=== PATIENT | male | born 1970 | race Caucasian/White ===

== ENCOUNTER 2019-04-30 17:41 | Observation (INO) | payer OTHER ==
[2019-04-30 17:54] VITALS: BMI 35.0
--- NOTE | 2019-04-30 20:25 | PDOC ---
Attending Attestation - Resident Resident Name: Channing Poon - ED Attending Attestation I have performed the following: I have examined & evaluated the patient, The case was reviewed & discussed with the resident, I agree w/resident's findings & plan, Exceptions are as noted - HPI HPI: 04/30/19 20:38 This 48-year-old male has a history of [id number] diabetes, coronary artery disease status post stent and hypertension He was referred to the ER today to be hospitalized for chest pain by Dr. Fleming - Physicial Exam PE: 04/30/19 20:42 48 yo male p/w chest pain head ncat neck supple lungs cta b/l cvs [id number] abd nontender skin warm and dry - Medical Decision Making 04/30/19 20:40 pt used to smoke 2 packs /day tobacco but quit 10 years ago plan trop,cbc.comp.cxr and admit to tele OBS
--- NOTE | 2019-04-30 20:38 | PDOC ---
History of Present Illness - General Chief Complaint: Chest Pain Stated Complaint: SENT BY PCP/CHEST PAIN Time Seen by Provider: 04/30/19 20:24 History Source: Patient - History of Present Illness Initial Comments: 04/30/19 20:35 48 yo M PMH HTN, HLD, CAD s/p stent 2/ 95% stenosis of LAD, anxiety/depression , presenting with chest pain. Reports that he has had intermittent pressure pain for the past 6 months, not exacerbated or alleviated by activity level, not associated with N/V or diaphoresis, lasting 5-30 minutes at a time. Not currently feeling this pain. Patient went to see his PCP, who sent him to the emergency room. Patient denies SOB, N/V, constipation/diarrhea, fevers/chills, LIZ. Past History - Past Medical History Allergies/Adverse Reactions: Allergies Allergy/AdvReac Type Severity Reaction Status Date / Time Penicillins Allergy Verified 09/15/14 11:32 Home Medications: Ambulatory Orders Aspirin Coated [Ecotrin -] 81 mg PO DAILY 12/07/13 Cholecalciferol (Vitamin D3) [Vitamin D] 1,000 unit PO DAILY 12/07/13 Cyanocobalamin [Vitamin B12 -] 100 mcg PO DAILY 12/07/13 Meloxicam [Mobic -] 15 mg PO DAILY 12/07/13 Rosuvastatin Calcium [Crestor] 20 mg PO DAILY 12/07/13 metFORMIN HCL [Glucophage -] 500 mg PO DAILY 12/07/13 Cardiac Disorders: Yes (CAD) COPD: No Diabetes: Yes Hypercholesterolemia: Yes - Surgical History Abdominal Surgery: Yes (UMBILICAL HERNIA) Cardiac Surgery: Yes (CARDIAC STENTS) - Psycho Social/Smoking Cessation Hx Smoking History: Never smoked Have you smoked in the past 12 months: No Number of Cigarettes Smoked Daily: 0 Information on smoking cessation initiated: No Hx Alcohol Use: No Drug/Substance Use Hx: No Review of Systems - Review of Systems Able to Perform ROS?: Yes Constitutional: No: Chills, Fever HEENTM: No: Recent change in vision, Throat Pain, Difficulty Swallowing Respiratory: No: Cough, Orthopnea, Shortness of Breath Cardiac (ROS): Yes: Chest Pain (intermittent, pressure, 5-30 minutes at time, unchanged by activity). No: Edema, Irregular Heart Rate, Lightheadedness, Syncope ABD/GI: No: Constipated, Diarrhea, Nausea, Vomiting : No: Dysuria, Frequency Musculoskeletal: No: Back Pain, Muscle Pain Neurological: No: Headache, Numbness, Tingling *Physical Exam - Vital Signs Last Vital Signs Temp Pulse Resp BP Pulse Ox 98.1 F 76 16 134/83 98 04/30/19 17:49 04/30/19 17:49 04/30/19 17:49 04/30/19 17:49 04/30/19 17:49 - Physical Exam Comments: 04/30/19 21:37 Gen: well-developed, well-nourished, NAD Neuro: AAOX4, CN II-XII intact, FTN intact HEENT: atraumatic, normocephalic Neck: trachea midline, supple CV: regular rhythm, regular rate Pulm: CTA b/l, no wheezing Abd: soft, non-distended, non-tender MSK: full ROM, intact pulses Extr: no edema, no deformities Skin: warm, dry ED Treatment Course - LABORATORY CBC & Chemistry Diagram: 04/30/19 21:15 04/30/19 21:15 - RADIOLOGY Radiology Studies Ordered: Category Date Time Status CHEST PA & LAT [RAD] Stat Radiology 04/30/19 20:33 Ordered Medical Decision Making - Medical Decision Making 04/30/19 21:30 EKG here normal sinus rhythm at 76 bpm. At office, showed rSr' in V1, possibly normal variant. Considering patient history and presentation, will likely admit for tele obs. - CBC, CMP - trop, EKG - DX PA + L - admit 04/30/19 21:46 CXR does not show nay acute pathology. Discharge - Discharge Information Problems reviewed: Yes Clinical Impression/Diagnosis: Chest pain Condition: Stable - Admission Yes - Follow up/Referral Referrals: Eliana Fleming [Primary Care Provider] - - Patient Discharge Instructions - Post Discharge Activity
[2019-04-30 21:33] LABS: BASO % 1.1 % (0-2.0); EOS % 2.2 % (0-4.5); HEMATOCRIT 45.2 % (35.4-49); HEMOGLOBIN 15.6 GM/dL (11.7-16.9); LYMPH % 34.5 % (8-40); MCH 30.7 pg (25.7-33.7); MCHC 34.5 g/dl (32.0-35.9); MEAN CELL VOLUME 89.2 fl (80-96); MONO % 7.8 % (3.8-10.2); NEUT % 54.4 % (42.8-82.8); PLATELET COUNT 195 K/MM3 (134-434); RBC 5.07 M/mm3 (4.00-5.60); RDW 13.3 % (11.9-15.9)
[2019-04-30 22:00] LABS: ALBUMIN 3.8 g/dl (3.4-5.0); BILIRUBIN,TOTAL 0.7 mg/dL (0.2-1); BLOOD UREA NITROGEN 9.9 mg/dL (7-18); CALCIUM 8.8 mg/dL (8.5-10.1); CREATININE 0.9 mg/dL (0.55-1.3); POTASSIUM 4.6 mmol/L (3.5-5.1); TOT PROT 6.5 g/dl (6.4-8.2)
--- NOTE | 2019-04-30 22:08 | PN ---
Teaching Attending Note Name of Resident: Jewel Gaspar ATTENDING PHYSICIAN STATEMENT I saw and evaluated the patient. I reviewed the resident's note and discussed the case with the resident. I agree with the resident's findings and plan as documented. SUBJECTIVE: 48 yo man w/ PMH HTN, HLD, uncontrolled DM, CAD s/p stent -2009, s/p ablation 2015, presenting with chest pain. Reports that he has had intermittent pressure pain for the past 6 months, not exacerbated or alleviated by activity level lasts up to 30 min at a time. He denied significant. He lost his health insurance in september and had not seen a roller inspector since then. Has been off his medications due to insurance loss. OBJECTIVE: Last Vital Signs Temp Pulse Resp BP Pulse Ox 98.1 F 76 16 134/83 98 04/30/19 17:49 04/30/19 17:49 04/30/19 17:49 04/30/19 17:49 04/30/19 17:49 gen- nad, obese heent- atraumatic, nc neck -no jvd cv-s1+s2+rrr chest cta b/l abdomen -soft, nt ext -no pedal edema Abnormal Lab Results 04/30/19 21:15 Sodium 135 L Anion Gap 7 L Random Glucose 368 H cxr reviewed ekg reviewed ASSESSMENT AND PLAN: #atypical chest pain r/o acs especially given his Hx of CAD, uncontrolled DM -tele-obs -trend trops -asa daily -statin -echo -b-una -acei -cardiology evaluation -stress test vs angiography #Uncontrolled DM, severe hyperglycemia -iv fluid hydration -a1c -novolog sliding scale -urine MA -#DVT ppx
--- NOTE | 2019-04-30 23:01 | HP ---
CHIEF COMPLAINT: PCP: Dr. Fleming (previously Dr. Vicente at [facility]) HISTORY OF PRESENT ILLNESS: 48 y/o/m with PMHx of HTN, CAD s/p stents, anxiety, depression here for chest pain x6 months. He has had intermittent chest pain for the last 6 months that occurs daily. The chest pain is sometimes sharp and sometimes heavy and lasts 5- 30 minutes and self resolves. His chest pain in the last 6 months has not been severe enough to seek medical care. He has no associated palpitations, sweating , dizziness, or SOB. Today he saw Dr. Fleming for the first time. He had an EKG done at the office and was sent to the ER. He had a stress test done 2 years ago which was normal. He admits to having multiple episodes of diarrhea daily for a long time and has discussed this with his previous PCP, today when he mentioned it to Dr. Fleming she recommended follow up with GI. He denies any bloody or foul smelling stools. He denies any numbness, tingling, N/V/D, or abd pain. ER course was notable for: (1) normal sinus rhythm EKG without any acute ischemic changes Recent Travel: none PAST MEDICAL HISTORY: HTN, CAD s/p stents, anxiety, depression PAST SURGICAL HISTORY: cardiac cath with stents, ablation for SVT, umbilical hernia repair Social History: Smoking: denies Alcohol: social EtOH Drugs: denies Allergies Penicillins Allergy (Verified 09/15/14 11:32) HOME MEDICATIONS: Home Medications Medication Instructions Recorded Aspirin Coated [Ecotrin -] 81 mg PO DAILY 12/07/13 Cholecalciferol (Vitamin D3) 1,000 unit PO DAILY 12/07/13 [Vitamin D] Cyanocobalamin [Vitamin B12 -] 100 mcg PO DAILY 12/07/13 Meloxicam [Mobic -] 15 mg PO DAILY 12/07/13 Rosuvastatin Calcium [Crestor] 20 mg PO DAILY 12/07/13 metFORMIN HCL [Glucophage -] 500 mg PO DAILY 12/07/13 REVIEW OF SYSTEMS Constitutional: denies weakness, fever, loss of appetite, sweating HEENT: denies sore throat, vision changes, nasal congestion Cardio: chest pain. denies palpitations, lightheadedness Resp: denies SOB, wheezing GI: diarrhea. denies abd pain, nausea, vomiting, constipation, bloody stools MSK: denies joint pain, back pain, neck pain SKIN: denies rashes Neuro: denies loss of consciousness, numbness, tingling, headache PHYSICAL EXAMINATION Vital Signs - 24 hr 04/30/19 17:49 Temperature 98.1 F Pulse Rate 76 Respiratory 16 Rate Blood Pressure 134/83 O2 Sat by Pulse 98 Oximetry (%) GENERAL: Awake, alert, and fully oriented, in no acute distress. HEAD: NC/AT EYES: PERRL, EOMI, no scleral icterus EARS, NOSE, THROAT: Ears normal, nares patent, oropharynx clear without exudates. Moist mucous membranes. NECK: Normal range of motion, supple without lymphadenopathy, JVD, or masses. LUNGS: Breath sounds equal, clear to auscultation bilaterally. No wheezes, and no crackles. No accessory muscle use. HEART: Regular rate and rhythm, normal S1 and S2 without murmur, rub or gallop. ABDOMEN: Soft, nontender, not distended, normoactive bowel sounds, no guarding, no rebound, no masses. MUSCULOSKELETAL: grossly normal range of motion at all joints UPPER EXTREMITIES: 2+ pulses, warm, well-perfused. No cyanosis. No clubbing. No peripheral edema. LOWER EXTREMITIES: 2+ pulses, warm, well-perfused. No peripheral edema. NEUROLOGICAL: Normal speech. 5/5 strength upper and lower extremities PSYCHIATRIC: Cooperative. Good eye contact. Appropriate mood and affect. SKIN: Warm, dry, normal turgor, no rashes or lesions noted, normal capillary refill. Laboratory Results - last 24 hr 04/30/19 04/30/19 04/30/19 21:15 21:15 21:15 WBC 8.0 RBC 5.07 Hgb 15.6 Hct 45.2 MCV 89.2 MCH 30.7 MCHC 34.5 RDW 13.3 Plt Count 195 MPV 9.0 Absolute Neuts (auto) 4.4 Neutrophils % 54.4 Lymphocytes % 34.5 Monocytes % 7.8 Eosinophils % 2.2 Basophils % 1.1 Nucleated RBC % 0 Sodium 135 L Potassium 4.6 Chloride 101 Carbon Dioxide 28 Anion Gap 7 L BUN 9.9 Creatinine 0.9 Est GFR (CKD-EPI)AfAm 116.65 Est GFR (CKD-EPI)NonAf 100.64 Random Glucose 368 H Calcium 8.8 Total Bilirubin 0.7 AST 27 ALT 60 Alkaline Phosphatase 82 Troponin I < 0.02 Total Protein 6.5 Albumin 3.8 Imaging: CXR negative for acute pathology ASSESSMENT/PLAN: 48 y/o/m with PMHx of HTN, CAD s/p stents, anxiety, depression here for chest pain x6 months sent here by Dr. Fleming after EKG in the office. 1)Chest pain - patient with history of CAD s/p 1 stent (LAD) -Trend trops. initial trop negative -continue home ASA -repeat EKG in the morning -Echocardiogram to evaluate cardiac function -continuous cardiac monitoring -Continue home Crestor 2)Hyperglycemia - patient with hx of diabetes at home -BGM Q6hr -Hold home metformin -insulin sliding scale 3)FEN -NPO after midnight incase stress test needed -NS @ 50mls/hr 4)Prophylaxis -SCDs 5)Dispo -Admitted for tele obs Visit type - Emergency Visit Emergency Visit: Yes ED Registration Date: 04/30/19 Care time: The patient presented to the Emergency Department on the above date and was hospitalized for further evaluation of their emergent condition. - New Patient This patient is new to me today: Yes Date on this admission: 05/01/19 - Critical Care Critical Care patient: No ATTENDING PHYSICIAN STATEMENT I saw and evaluated the patient. I reviewed the resident's note and discussed the case with the resident. I agree with the resident's findings and plan as documented. SUBJECTIVE: OBJECTIVE: ASSESSMENT AND PLAN:
[2019-04-30 23:35] VITALS: TEMP 98.2
[2019-04-30] MEDS ORDERED: SODIUM CHLORIDE 1,000 ML IV SCH (23:45)
[2019-05-01 07:45] LABS: HEMATOCRIT 41.6 % (35.4-49); HEMOGLOBIN 14.6 GM/dL (11.7-16.9); MCH 31.2 pg (25.7-33.7); MCHC 35.2 g/dl (32.0-35.9); MEAN CELL VOLUME 88.8 fl (80-96); MEAN PLT VOLUME 8.6 fl (7.5-11.1); PLATELET COUNT 164 K/MM3 (134-434); RBC 4.69 M/mm3 (4.00-5.60); RDW 12.7 % (11.9-15.9); WHITE BLOOD COUNT 6.6 K/mm3 (4.0-10.0)
[2019-05-01 08:08] LABS: ALBUMIN 3.4 g/dl (3.4-5.0); ALK PHOS 75 U/L (45-117); ANION GAP 8 MMOL/L (8-16); BILIRUBIN,TOTAL 0.6 mg/dL (0.2-1); BLOOD UREA NITROGEN 10.3 mg/dL (7-18); CALCIUM 8.5 mg/dL (8.5-10.1); CHLORIDE 104 mmol/L (98-107); CO2 25 mmol/L (21-32); CREATININE 0.8 mg/dL (0.55-1.3); GLUCOSE,RANDOM 303 mg/dL (74-106); POTASSIUM 3.8 mmol/L (3.5-5.1); SGOT/AST 22 U/L (15-37); SGPT/ALT 51 U/L (13-61); SODIUM 136 mmol/L (136-145); TOT PROT 5.9 g/dl (6.4-8.2)
[2019-05-01] MEDS: INSULIN SLIDING SCALE (NOVOLOG) 1 VIAL SQ SCH ×2 (08:55→13:33)
[2019-05-01] MEDS ORDERED: METOPROLOL TARTRATE 50 MG TABLET (FP) PO SCH (10:00)
[2019-05-01] MEDS ORDERED: VENLAFAXINE HCL 150 MG E.R. CAPSULE PO SCH (10:00)
[2019-05-01] MEDS ORDERED: LOSARTAN POTASSIUM 50 MG TABLET (FP) PO SCH (10:00)
[2019-05-01] MEDS ORDERED: ROSUVASTATIN CA 20 MG TABLET (FP) PO SCH ×2 (10:00→22:00)
[2019-05-01] MEDS ORDERED: ESCITALOPRAM OXALATE 20 MG TABLET (FP) PO SCH (10:00)
[2019-05-01] MEDS ORDERED: ASPIRIN 81 MG CHEWABLE TABLETS PO SCH ×2 (10:00→22:00)
--- NOTE | 2019-05-01 10:10 | CON.CARD ---
Consult Consult Specialty:: Cardiology - History of Present Illness History of Present Illness: 48 y/o/m with PMHx of HTN, CAD s/p stents, anxiety, depression here for chest pain x6 months. He has had intermittent chest pain for the last 6 months that occurs daily. The chest pain is sometimes sharp and sometimes heavy and lasts 5- 30 minutes and self resolves. His chest pain in the last 6 months has not been severe enough to seek medical care. He has no associated palpitations, sweating , dizziness, or SOB. Today he saw Dr. Fleming for the first time. He had an EKG done at the office and was sent to the ER. He had a stress test done 2 years ago which was normal. He admits to having multiple episodes of diarrhea daily for a long time and has discussed this with his previous PCP, today when he mentioned it to Dr. Fleming she recommended follow up with GI. He denies any bloody or foul smelling stools. He denies any numbness, tingling, N/V/D, or abd pain. - History Source History Provided By: Patient, Medical Record - Past Medical History Cardio/Vascular: Yes: CAD - Alcohol/Substance Use Hx Alcohol Use: No - Smoking History Smoking history: Never smoked Have you smoked in the past 12 months: No Aproximately how many cigarettes per day: 0 Home Medications - Allergies Allergies/Adverse Reactions: Allergies Allergy/AdvReac Type Severity Reaction Status Date / Time Penicillins Allergy Verified 09/15/14 11:32 - Home Medications Home Medications: Ambulatory Orders Aspirin Coated [Ecotrin -] 81 mg PO DAILY 12/07/13 Cyanocobalamin [Vitamin B12 -] 100 mcg PO DAILY 12/07/13 Rosuvastatin Calcium [Crestor] 40 mg PO DAILY 12/07/13 metFORMIN HCL [Glucophage -] 1,000 mg PO DAILY 12/07/13 Cholecalciferol (Vitamin D3) [Vitamin D3] 5,000 unit PO DAILY 05/01/19 Clonazepam 0.5 mg PO TID 05/01/19 Escitalopram Oxalate [Lexapro -] 20 mg PO DAILY 05/01/19 Ezetimibe 10 mg PO DAILY 05/01/19 Flaxseed Oil [[place]-3 Flaxseed Oil] 1,000 mg PO DAILY 05/01/19 Losartan Potassium 50 mg PO DAILY 05/01/19 Metoprolol Tartrate 50 mg PO DAILY 05/01/19 Venlafaxine HCl ER [Effexor Xr -] 150 mg PO DAILY 05/01/19 Review of Systems - Review of Systems Constitutional: reports: No Symptoms Eyes: reports: No Symptoms HENT: reports: No Symptoms Neck: reports: No Symptoms Cardiovascular: reports: Chest Pain Respiratory: reports: No Symptoms Gastrointestinal: reports: No Symptoms Genitourinary: reports: No Symptoms Breasts: reports: No Symptoms Reported Musculoskeletal: reports: No Symptoms Integumentary: reports: No Symptoms Neurological: reports: No Symptoms Endocrine: reports: No Symptoms Hematology/Lymphatic: reports: No Symptoms Psychiatric: reports: No Symptoms Vital Signs: Vital Signs Temperature 98.2 F 04/30/19 20:35 Pulse Rate 68 05/01/19 08:30 Respiratory Rate 20 05/01/19 08:30 Blood Pressure 101/62 05/01/19 08:30 O2 Sat by Pulse Oximetry (%) 96 05/01/19 09:04 Constitutional: Yes: Well Nourished, No Distress, Calm Eyes: Yes: WNL, Conjunctiva Clear, EOM Intact HENT: Yes: WNL, Atraumatic, Normocephalic Neck: Yes: WNL, Supple, Trachea Midline Respiratory: Yes: WNL, Regular, CTA Bilaterally Gastrointestinal: Yes: WNL, Normal Bowel Sounds Renal/: Yes: WNL Cardiovascular: Yes: WNL, Regular Rate and Rhythm Musculoskeletal: Yes: WNL Extremities: Yes: WNL Integumentary: Yes: WNL Neurological: Yes: WNL, Alert, Oriented ...Motor Strength: WNL Psychiatric: Yes: WNL, Alert, Oriented - Other Data Labs, Other Data: CBC, BMP 05/01/19 05:08 05/01/19 05:08 Troponin, BNP 04/30/19 05/01/19 05/01/19 21:15 03:55 05:08 Troponin I < 0.02 < 0.02 < 0.02 Troponin, BNP 04/30/19 05/01/19 05/01/19 21:15 03:55 05:08 Troponin I < 0.02 < 0.02 < 0.02 Imaging - Results Chest X-ray: Image Reviewed (no i/e) EKG: Image Reviewed (sr wnl) Problem List - Problems (1) Chest pain Code(s): R07.9 - CHEST PAIN, UNSPECIFIED (2) Cat scratch Code(s): T14.8 - OTHER INJURY OF UNSPECIFIED BODY REGION * DO NOT USE *; W55.03XA - SCRATCHED BY CAT, INITIAL ENCOUNTER (3) Dog bite - wound Code(s): W54.0XXA - BITTEN BY DOG, INITIAL ENCOUNTER Assessment/Plan HTN, DM, CAD s/p stents, anxiety, depression here for chest pain x6 months worsening recently. Plan asa bb r/o mi echo MIBI st keep LDL below 70
--- NOTE | 2019-05-01 12:14 | EKG ---
Test Reason : Blood Pressure : / mmHG Vent. Rate : 080 BPM Atrial Rate : 080 BPM P-R Int : 154 ms QRS Dur : 086 ms QT Int : 366 ms P-R-T Axes : 028 018 022 degrees QTc Int : 422 ms NORMAL SINUS RHYTHM NORMAL ECG NO PREVIOUS ECGS AVAILABLE Confirmed by JASPREET WELDON MD ([id number]) on 05/01/2019 12:13:38 PM Referred By: JOCELYN NELSON Confirmed By:JASPREET WELDON MD
--- NOTE | 2019-05-01 12:54 | EKG ---
Test Reason : Blood Pressure : / mmHG Vent. Rate : 076 BPM Atrial Rate : 076 BPM P-R Int : 152 ms QRS Dur : 086 ms QT Int : 374 ms P-R-T Axes : 038 039 042 degrees QTc Int : 420 ms POOR DATA QUALITY, INTERPRETATION MAY BE ADVERSELY AFFECTED NORMAL SINUS RHYTHM NORMAL ECG NO PREVIOUS ECGS AVAILABLE Confirmed by JASPREET WELDON MD ([id number]) on 05/01/2019 12:54:29 PM Referred By: Confirmed By:JASPREET WELDON MD
--- NOTE | 2019-05-01 14:04 | ECHO ---
Name: MELINDA MEDINA Exam:Adult Echocardiogram Study Date: 05/01/2019 09:31 AM Age: 48 yrs Reason For Study: EVALUATE CARDIAC FUNCTION Height: 66 in Weight: 217 lb BSA: 2.1 m2 MMode/2D Measurements & Calculations IVSd: 0.74 cm Ao root diam: 2.7 cm LVIDd: 5.4 cm LA dimension: 3.2 cm LVIDs: 3.6 cm LVPWd: 0.73 cm EDV(Teich): 144.3 ml LVOT diam: 2.2 cm ESV(Teich): 53.7 ml Doppler Measurements & Calculations MV E max edin: 71.6 cm/sec Ao V2 max: 113.8 cm/sec MV A max edin: 59.2 cm/sec Ao max P.2 mmHg MV E/A: 1.2 MV dec time: 0.18 sec MARIANELA(V,D): 3.1 cm2 LV V1 max P.8 mmHg MR max edin: 309.5 cm/sec LV V1 max: 97.2 cm/sec MR max P.3 mmHg TR max edin: 206.9 cm/sec Med Peak E' Edin: 6.0 cm/sec TR max P.1 mmHg Med E/e': 11.9 Lat Peak E' Edin: 9.3 cm/sec Lat E/e': 7.7 Procedure A two-dimensional transthoracic echocardiogram with color flow and Doppler was performed. Left Ventricle The left ventricular size, thickness and function are normal. The left ventricular ejection fraction is normal. The left ventricular wall motion is normal. Right Ventricle The right ventricle is mild to moderately dilated. The right ventricular systolic function is mild to moderately reduced. Atria Normal left and right atrial size and function. Mitral Valve There is mild mitral annular calcification. There is no mitral valve stenosis. There is mild mitral regurgitation. Tricuspid Valve There is trivial tricuspid valve thickening. There is no tricuspid stenosis. There is Trace to mild t ricuspid regurgitation. Right ventricular systolic pressure is normal. Aortic Valve The aortic valve is not well visualized. No hemodynamically significant valvular aortic stenosis. No aortic regurgitation is present. Pulmonic Valve The pulmonic valve is not well visualized. Great Vessels The aortic root is normal size. Pericardium/Pleura There is no pericardial effusion. Interpretation Summary The left ventricular size, thickness and function are normal The left ventricular ejection fraction is normal. The left ventricular wall motion is normal. There is Trace to mild tricuspid regurgitation. Right ventricular systolic pressure is normal. The right ventricle is mild to moderately dilated. The right ventricular systolic function is mild to moderately reduced. There is mild mitral regurgitation. MD Hola Hernandez 05/01/2019 02:03 PM
--- NOTE | 2019-05-01 15:53 | DS ---
Physical Exam: SUBJECTIVE: Patient seen and examined OBJECTIVE: Vital Signs Period Temp Pulse Resp BP Sys/[place] Pulse Ox Last 24 Hr 98.1 F-98.2 F 68-83 16-20 101-134/62-83 96-98 PHYSICAL EXAM GENERAL: The patient is awake, alert, and fully oriented, in no acute distress. HEAD: Normal with no signs of trauma. EYES: extraocular movements intact, sclera anicteric, conjunctiva clear. ENT: Ears normal, nares patent, moist mucous membranes. NECK: Trachea midline, full range of motion, supple. LUNGS: Breath sounds equal, clear to auscultation bilaterally, no wheezes, no crackles, no accessory muscle use. HEART: Regular rate and rhythm, S1, S2 without murmur, rub or gallop. ABDOMEN: Soft, nontender, nondistended, no guarding, no rebound. EXTREMITIES: warm, well-perfused, no edema. NEUROLOGICAL: Normal speech, gait not observed. PSYCH: Normal mood, normal affect. SKIN: Warm, dry, normal turgor, no rashes or lesions noted. LABS Laboratory Results - last 24 hr 04/30/19 04/30/19 04/30/19 21:15 21:15 21:15 WBC 8.0 RBC 5.07 Hgb 15.6 Hct 45.2 MCV 89.2 MCH 30.7 MCHC 34.5 RDW 13.3 Plt Count 195 MPV 9.0 Absolute Neuts (auto) 4.4 Neutrophils % 54.4 Lymphocytes % 34.5 Monocytes % 7.8 Eosinophils % 2.2 Basophils % 1.1 Nucleated RBC % 0 Sodium 135 L Potassium 4.6 Chloride 101 Carbon Dioxide 28 Anion Gap 7 L BUN 9.9 Creatinine 0.9 Est GFR (CKD-EPI)AfAm 116.65 Est GFR (CKD-EPI)NonAf 100.64 POC Glucometer Random Glucose 368 H Hemoglobin A1c % Calcium 8.8 Total Bilirubin 0.7 AST 27 ALT 60 Alkaline Phosphatase 82 Creatine Kinase 53 Troponin I < 0.02 Total Protein 6.5 Albumin 3.8 05/01/19 05/01/19 05/01/19 03:55 05:08 05:08 WBC 6.6 RBC 4.69 Hgb 14.6 Hct 41.6 MCV 88.8 MCH 31.2 MCHC 35.2 RDW 12.7 Plt Count 164 MPV 8.6 Absolute Neuts (auto) Neutrophils % Lymphocytes % Monocytes % Eosinophils % Basophils % Nucleated RBC % Sodium 136 Potassium 3.8 Chloride 104 Carbon Dioxide 25 Anion Gap 8 BUN 10.3 Creatinine 0.8 Est GFR (CKD-EPI)AfAm 122.43 Est GFR (CKD-EPI)NonAf 105.63 POC Glucometer Random Glucose 303 H Hemoglobin A1c % Calcium 8.5 Total Bilirubin 0.6 AST 22 ALT 51 Alkaline Phosphatase 75 Creatine Kinase 36 36 Troponin I < 0.02 < 0.02 Total Protein 5.9 L Albumin 3.4 05/01/19 05/01/19 05/01/19 05:08 08:19 12:46 WBC RBC Hgb Hct MCV MCH MCHC RDW Plt Count MPV Absolute Neuts (auto) Neutrophils % Lymphocytes % Monocytes % Eosinophils % Basophils % Nucleated RBC % Sodium Potassium Chloride Carbon Dioxide Anion Gap BUN Creatinine Est GFR (CKD-EPI)AfAm Est GFR (CKD-EPI)NonAf POC Glucometer 269 230 Random Glucose Hemoglobin A1c % 10.8 H Calcium Total Bilirubin AST ALT Alkaline Phosphatase Creatine Kinase Troponin I Total Protein Albumin HOSPITAL COURSE: 48M w/ pmh of HTN, DM, CAD(LAD 90% stenosis) s/p stent in 2009, anxiety, depression sent in from his PCP(Lonnie) for complaint of chronic chest pain and concerning EKG(?anterior wall infarct of undetermined age) in the PCP office. ED EKG was NSR. Patient was admitted for ACS r/o, possible unstable angina. Echocardiogram showing normal LV, trace TR, mild MR. Catering Cook consulted who recommended cardiac stress. Patient refused cardiac stress due to concern that the radioiostopes would preclude him from close contact with children. Has a 5y/o son that pt is currently caring for. States that he cannot avoid close contact with his son and rather not expose the child to the risk of radiation. Expresses understanding about the risks of leaving AMA w/ possible undiagnosed ACS. Patient signed AMA paperwork. Date of Admission:04/30/19 Date of Discharge: 05/01/19 Minutes to complete discharge: 20 Discharge Summary Problems reviewed: Yes Reason For Visit: CHEST PAIN Current Active Problems Chest pain (Acute) Condition: Stable - Instructions Diet, Activity, Other Instructions: You were sent to the hospital for evaluation of your chronic chest pain and EKG findings at your PCP's office. At the hospital, the EKG appeared normal. Labwork was not suggestive of a recent or active heart attack. The echocardiogram was normal. A auth specialist was consulted who recommended a cardiac stress test. You declined inpatient testing with the understanding that there may be an undiagnosed cardiac issue that can put you at risk of heart attack, dangerous arrhythmias, or sudden . Please follow-up with the below physicians: -PCP(Dr Fleming) for continued optimization of your diabetic and cholesterol medications -Catering Cook(Dr Hernandez) to discuss a stress-test as outpatient Medications: -please continue your home medications Please seek immediate medical attention or go to the Emergency Room if you experience: -severe chest pain, shortness of breath, palpitations -severe dizziness, headache -fever, chills, nausea, vomiting Referrals: Eliana Fleming [Primary Care Provider] - Disposition: AGAINST MEDICAL ADVICE - Home Medications Comprehensive Discharge Medication List: Ambulatory Orders Aspirin Coated [Ecotrin -] 81 mg PO DAILY 12/07/13 Cyanocobalamin [Vitamin B12 -] 100 mcg PO DAILY 12/07/13 Rosuvastatin Calcium [Crestor] 40 mg PO HS 12/07/13 metFORMIN HCL [Glucophage -] 1,000 mg PO DAILY 12/07/13 Cholecalciferol (Vitamin D3) [Vitamin D3] 5,000 unit PO DAILY 05/01/19 Clonazepam 0.5 mg PO TID 05/01/19 Escitalopram Oxalate [Lexapro -] 20 mg PO DAILY 05/01/19 Ezetimibe 10 mg PO DAILY 05/01/19 Flaxseed Oil [[place]-3 Flaxseed Oil] 1,000 mg PO DAILY 05/01/19 Losartan Potassium 50 mg PO DAILY 05/01/19 Metformin HCl [Metformin HCl ER] 1,000 mg PO BID 05/01/19 Metoprolol Succinate 50 mg PO DAILY 05/01/19 Metoprolol Tartrate 50 mg PO DAILY 05/01/19 Venlafaxine HCl ER [Effexor Xr -] 150 mg PO DAILY 05/01/19 This patient is new to me today: No Emergency Visit: No Critical Care patient: No - Discharge Referral Referred to [facility] No ATTENDING PHYSICIAN STATEMENT I saw and evaluated the patient. I reviewed the resident's note and discussed the case with the resident. I agree with the resident's findings and plan as documented. SUBJECTIVE: OBJECTIVE: ASSESSMENT AND PLAN:
[2019-05-01 16:12] VITALS: BP 112/71; PULSE 69
--- NOTE | 2019-05-01 18:14 | PN ---
Teaching Attending Note Name of Resident: River Morin ATTENDING PHYSICIAN STATEMENT I reviewed the resident's note and discussed the case with the resident. I agree with the resident's findings and plan as documented. SUBJECTIVE: Patient was in testing earlier this AM, was not seen by me. Left AMA
== END 2019-05-01 16:12 | disposition left against medical advice (07) ==
LOC: JER 17:41 → JERBED 21:44
PROVIDERS: ADMIT Internal Medicine; ATTEND Internal Medicine
PROC: 3E013VG Introduction of Insulin into Subcutaneous Tissue, Percutaneous Approach (ICD-10-PCS; principal; 2019-04-30)
PROC: 3E0337Z Introduction of Electrolytic and Water Balance Substance into Peripheral Vein, Percutaneous Approach (ICD-10-PCS; 2019-04-30)
DX: R07.89 Other chest pain (principal); I10 Essential (primary) hypertension; E78.5 Hyperlipidemia, unspecified; E11.65 Type 2 diabetes mellitus with hyperglycemia; I25.10 Atherosclerotic heart disease of native coronary artery without angina pectoris; F41.9 Anxiety disorder, unspecified; F32.9 Major depressive disorder, single episode, unspecified; Z79.82 Long term (current) use of aspirin; Z79.84 Long term (current) use of oral hypoglycemic drugs; Z88.0 Allergy status to penicillin; Z95.5 Presence of coronary angioplasty implant and graft; Z87.891 Personal history of nicotine dependence
CPT/HCPCS: 36415; 71046-TC-FY; 80053; 82550; 82962; 83036; 84484; 85025; 85027; 93005; 93010; 93306-TC; 96372; 99284-25; G0378; J7030

== ENCOUNTER 2021-09-20 14:45 | Observation (INO) | payer OTHER ==
[2021-09-20] MEDS ORDERED: ASPIRIN 81 MG CHEWABLE TABLETS PO ONE (17:57)
[2021-09-20 18:07] LABS: BASO % 0.4 % (0-2.0); EOS % 1.5 % (0-4.5); HEMATOCRIT 41.4 % (35.4-49); HEMOGLOBIN 14.5 GM/dL (11.7-16.9); LYMPH % 35.4 % (8-40); MCH 32.2 pg (25.7-33.7); MCHC 35.1 g/dl (32.0-35.9); MEAN CELL VOLUME 91.8 fl (80-96); MEAN PLT VOLUME 8.5 fl (7.5-11.1); MONO % 9.7 % (3.8-10.2); PLATELET COUNT 179 10^3/uL (134-434); RBC 4.52 M/mm3 (4.00-5.60); RDW 13.5 % (11.9-15.9); WHITE BLOOD COUNT 5.7 K/mm3 (4.0-10.0)
[2021-09-20 18:17] LABS: INR 0.98 (0.83-1.09); PROTHROMBIN TIME (PATIENT) 11.3 SEC (9.7-13.0)
[2021-09-20 18:19] LABS: ACTIVATED PTT 32.8 SECONDS (25.2-36.5)
[2021-09-20 18:33] LABS: ALBUMIN 3.9 g/dl (3.4-5.0)
[2021-09-20 18:35] LABS: CREATININE 0.8 mg/dL (0.55-1.3)
[2021-09-20 18:37] LABS: TOT PROT 6.5 g/dl (6.4-8.2)
[2021-09-20 18:38] LABS: BILIRUBIN,TOTAL 0.5 mg/dL (0.2-1)
[2021-09-20 18:40] LABS: N-TERMINAL BNP 18.2 pg/ml (5-125)
[2021-09-20] MEDS ORDERED: ASPIRIN 81 MG CHEWABLE TABLETS ONE (18:59)
[2021-09-20] MEDS: INSULIN SLIDING SCALE (NOVOLOG) 1 VIAL SQ SCH (23:28)
[2021-09-21 02:07] VITALS: BMI 34.3
[2021-09-21] MEDS ORDERED: CITALOPRAM HYDROBROMIDE 10 MG TABLET PO ONE (02:26)
[2021-09-21] MEDS ORDERED: clonazePAM 0.5 MG TABLET PO ONE ×2 (02:27→19:53)
[2021-09-21] MEDS: INSULIN SLIDING SCALE (NOVOLOG) 1 VIAL SQ SCH ×4 (06:40→21:43)
[2021-09-21 08:52] LABS: WHITE BLOOD COUNT 4.6 K/mm3 (4.0-10.0)
[2021-09-21 08:53] LABS: BASO % 0.3 % (0-2.0); EOS % 2.4 % (0-4.5); HEMATOCRIT 42.6 % (35.4-49); HEMOGLOBIN 14.3 GM/dL (11.7-16.9); LYMPH % 30.1 % (8-40); MCH 31.1 pg (25.7-33.7); MCHC 33.6 g/dl (32.0-35.9); MEAN CELL VOLUME 92.4 fl (80-96); MEAN PLT VOLUME 8.6 fl (7.5-11.1); MONO % 11.4 % (3.8-10.2); NEUT % 55.8 % (42.8-82.8); PLATELET COUNT 159 10^3/uL (134-434); RBC 4.61 M/mm3 (4.00-5.60); RDW 13.4 % (11.9-15.9)
[2021-09-21 09:16] LABS: ALBUMIN 3.7 g/dl (3.4-5.0); CALCIUM 8.6 mg/dL (8.5-10.1); MAGNESIUM 2.2 mg/dL (1.8-2.4)
[2021-09-21 09:17] LABS: BLOOD UREA NITROGEN 11.1 mg/dL (7-18)
[2021-09-21 09:19] LABS: PHOSPHOROUS 3.9 mg/dL (2.5-4.9)
[2021-09-21 09:21] LABS: BILIRUBIN,TOTAL 0.7 mg/dL (0.2-1); CREATININE 0.8 mg/dL (0.55-1.3)
[2021-09-21] MEDS ORDERED: NITROGLYCERIN SUBLINGUAL 1/150 0.4 MG TAB SL PRN (09:51)
[2021-09-21] MEDS ORDERED: ENOXAPARIN NA (PORCINE) 40 MG/0.4 ML DISP.SYRIN SQ SCH (10:00)
[2021-09-21] MEDS ORDERED: CLOPIDOGREL BISULFATE 300 MG TABLET PO ONE (14:15)
[2021-09-21] MEDS: ISOSORBIDE MONONITRATE 60 MG TAB.SR.24H (FP) PO SCH (14:19)
[2021-09-21] MEDS: ASPIRIN 81 MG CHEWABLE TABLETS PO SCH (14:19)
[2021-09-21] MEDS: LOSARTAN POTASSIUM 50 MG TABLET PO SCH (14:19)
[2021-09-21] MEDS: EZETIMIBE 10 MG TABLET (FP) PO SCH (14:37)
[2021-09-21] MEDS: ROSUVASTATIN CA 20 MG TABLET PO SCH (21:43)
[2021-09-22] MEDS: INSULIN SLIDING SCALE (NOVOLOG) 1 VIAL SQ SCH ×4 (06:47→21:26)
[2021-09-22 09:26] LABS: BASO % 0.6 % (0-2.0); EOS % 3.5 % (0-4.5); HEMATOCRIT 40.6 % (35.4-49); HEMOGLOBIN 14.3 GM/dL (11.7-16.9); LYMPH % 25.1 % (8-40); MCH 32.5 pg (25.7-33.7); MCHC 35.2 g/dl (32.0-35.9); MEAN CELL VOLUME 92.5 fl (80-96); MEAN PLT VOLUME 8.3 fl (7.5-11.1); MONO % 11.8 % (3.8-10.2); PLATELET COUNT 146 10^3/uL (134-434); RBC 4.39 M/mm3 (4.00-5.60); RDW 13.6 % (11.9-15.9); WHITE BLOOD COUNT 4.5 K/mm3 (4.0-10.0)
[2021-09-22] MEDS: CLOPIDOGREL BISULFATE 75 MG TABLET (FP) PO SCH (09:47)
[2021-09-22] MEDS: EZETIMIBE 10 MG TABLET (FP) PO SCH (09:47)
[2021-09-22] MEDS: ASPIRIN 81 MG CHEWABLE TABLETS PO SCH (09:48)
[2021-09-22] MEDS: ISOSORBIDE MONONITRATE 60 MG TAB.SR.24H (FP) PO SCH (09:48)
[2021-09-22] MEDS: LOSARTAN POTASSIUM 50 MG TABLET PO SCH (09:50)
[2021-09-22 10:12] LABS: CALCIUM 8.2 mg/dL (8.5-10.1)
[2021-09-22 10:13] LABS: ALBUMIN 3.4 g/dl (3.4-5.0); BLOOD UREA NITROGEN 12.4 mg/dL (7-18)
[2021-09-22 10:16] LABS: CREATININE 0.8 mg/dL (0.55-1.3)
[2021-09-22 10:17] LABS: TOT PROT 5.8 g/dl (6.4-8.2)
[2021-09-22 10:18] LABS: BILIRUBIN,TOTAL 0.6 mg/dL (0.2-1)
[2021-09-22] MEDS: LOPERAMIDE HCL 2 MG CAPSULE PO PRN (17:18)
[2021-09-22] MEDS: clonazePAM 0.25 MG ODT TABLETS SL PRN (18:27)
[2021-09-22] MEDS: ROSUVASTATIN CA 20 MG TABLET PO SCH (21:26)
[2021-09-22] MEDS ORDERED: CITALOPRAM HYDROBROMIDE 10 MG TABLET PO SCH (22:00)
[2021-09-23] MEDS: INSULIN SLIDING SCALE (NOVOLOG) 1 VIAL SQ SCH ×3 (06:06→16:36)
[2021-09-23 09:11] LABS: HEMATOCRIT 42.5 % (35.4-49); HEMOGLOBIN 14.4 GM/dL (11.7-16.9); MCH 31.4 pg (25.7-33.7); MCHC 33.9 g/dl (32.0-35.9); MEAN CELL VOLUME 92.7 fl (80-96); MEAN PLT VOLUME 8.7 fl (7.5-11.1); PLATELET COUNT 155 10^3/uL (134-434); RBC 4.58 M/mm3 (4.00-5.60); RDW 13.8 % (11.9-15.9); WHITE BLOOD COUNT 5.5 K/mm3 (4.0-10.0)
[2021-09-23] MEDS: ISOSORBIDE MONONITRATE 60 MG TAB.SR.24H (FP) PO SCH (09:23)
[2021-09-23] MEDS: ASPIRIN 81 MG CHEWABLE TABLETS PO SCH (09:23)
[2021-09-23] MEDS: CLOPIDOGREL BISULFATE 75 MG TABLET (FP) PO SCH (09:23)
[2021-09-23] MEDS: LOSARTAN POTASSIUM 50 MG TABLET PO SCH (09:24)
[2021-09-23] MEDS: EZETIMIBE 10 MG TABLET (FP) PO SCH (09:25)
[2021-09-23 09:33] LABS: BLOOD UREA NITROGEN 12.4 mg/dL (7-18)
[2021-09-23] MEDS: clonazePAM 0.25 MG ODT TABLETS SL PRN (09:35)
[2021-09-23 09:36] LABS: CREATININE 0.8 mg/dL (0.55-1.3)
[2021-09-23] MEDS: LOPERAMIDE HCL 2 MG CAPSULE PO PRN (11:33)
[2021-09-23 14:03] VITALS: BP 122/79; PULSE 82; TEMP 97.5
== END 2021-09-23 17:09 | disposition short-term general hospital (02) ==
LOC: JER 14:45 → JERBED 18:04 → J4S 09-21 01:32
PROVIDERS: ADMIT Internal Medicine; ATTEND Internal Medicine
PROC: 3E023GC Introduction of Other Therapeutic Substance into Muscle, Percutaneous Approach (ICD-10-PCS; principal; 2021-09-20)
PROC: 3E013VG Introduction of Insulin into Subcutaneous Tissue, Percutaneous Approach (ICD-10-PCS; 2021-09-20)
DX: I25.10 Atherosclerotic heart disease of native coronary artery without angina pectoris (principal); E78.5 Hyperlipidemia, unspecified; E11.9 Type 2 diabetes mellitus without complications; I11.9 Hypertensive heart disease without heart failure; Z95.5 Presence of coronary angioplasty implant and graft; K58.9 Irritable bowel syndrome, unspecified; Z87.891 Personal history of nicotine dependence; Z88.0 Allergy status to penicillin; E66.9 Obesity, unspecified; Z68.34 Body mass index [BMI] 34.0-34.9, adult; L71.9 Rosacea, unspecified
CPT/HCPCS: 36415; 71046-TC-FY; 78452-TC; 80048; 80053; 80061; 82550; 82962; 83036; 83735; 83880; 84100; 84439; 84443; 84484; 85025; 85027; 85610; 85730; 86850; 86900; 86901; 93005; 93010; 93017; 96372; 99285-25; A9502; C9803; G0378; U0003; U0005